=== PATIENT | female | born 1980 | race Hispanic/Latino ===

== ENCOUNTER 2018-01-14 18:05 | Emergency (ER) | payer MEDICARE, OTHER ==
[2018-01-14] MEDS ORDERED: Silver Sulfadiazine 1% CREAM (50 gm) TOP STA (20:22)
[2018-01-14] MEDS ORDERED: Tdap Vaccine 0.5 ml Vial (10-64 yrs) IM ONE ×2 (20:22→20:36)
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
[2018-01-14] MEDS ORDERED: Silver Sulfadiazine 1% CREAM (50 gm) ONE (20:36)
[2018-01-14 21:32] VITALS: BP 122/78; PULSE 76; RESP 18; TEMP 98
[2018-01-15 00:50] VITALS: O2SAT 97
== END 2018-01-14 21:31 | disposition home or self-care (01) ==
LOC: H.ER 18:05
DX: T23.172A Burn of first degree of left wrist, initial encounter (principal); T22.112A Burn of first degree of left forearm, initial encounter; X15.8XXA Contact with other hot household appliances, initial encounter; Y92.512 Supermarket, store or market as the place of occurrence of the external cause; Y99.0 Civilian activity done for income or pay; Z23 Encounter for immunization